=== PATIENT | male | born 1945 | race Hispanic/Latino ===

== ENCOUNTER 2017-01-01 07:26 | Day surgery (SDC) | payer BC ==
[2016-12-20 12:36] VITALS: BMI 38.5
[2017-01-01 08:02] LABS: ADD MANUAL DIFF? NO
[2017-01-01 08:10] LABS: BASO # 0.01 K/mm3 (0.0-2.0); BASO % 0.1 % (0.0-3.0); EOS # 0.2 (0.0-0.7); GRAN # 6.96 (1.4-6.5); GRAN % 72.6 % (50.0-68.0); HEMATOCRIT 40.8 % (42.0-52.0); LYMPH # 1.7 (1.2-3.4); LYMPH % 17.9 % (22.0-35.0); MEAN CELL VOLUME 88.5 fL (80.0-105.0); MEAN CORPUSCULAR HEMOGLOBIN 28.2 pg (25.0-35.0); MEAN CORPUSCULAR HGB CONC 31.9 g/dl (31.0-37.0); MEAN PLATELET VOLUME 11.3 fl (7.0-11.0); MONO # 0.7 (0.1-0.6); MONO % 7.4 % (1.0-6.0); PLATELET COUNT 215 10^3/uL (120.0-450.0); RED CELL DISTRIBUTION WIDTH 14.7 % (11.5-14.5); WHITE BLOOD COUNT 9.6 10^3/ul (4.5-11.0)
[2017-01-01 08:18] LABS: BLOOD UREA NITROGEN 36 mg/dL (7-21); CALCIUM 8.9 mg/dL (8.4-10.5); CARBON DIOXIDE 31 mmol/L (21-33); CHLORIDE 102 mmol/L (98-107); GFR AFRICAN-AMERICAN > 60; GLUCOSE,RANDOM 103 mg/dL (70-110); PARTIAL THROMBOPLASTIN TIME 27.3 Seconds (23.7-30.8); POTASSIUM 4.5 mmol/L (3.6-5.0); SODIUM 142 mmol/L (132-148)
[2017-01-01] MEDS ORDERED: Lidocaine 2% Inj (20ml) ONE (09:32)
[2017-01-01] MEDS ORDERED: Iodixanol 320 MG/ML 200 ML BOTTLE IV ONE (09:33)
[2017-01-01] MEDS ORDERED: Iodixanol 320 MG/ML 100 ML BOTTLE IV ONE (09:33)
[2017-01-01] MEDS ORDERED: Midazolam 2 MG/2 ML VIAL ONE ×2 (09:33→10:08)
--- NOTE | 2017-01-01 09:44 | CARD ---
APPROVED REPORT EKG Measurement Heart [id number] [place] [id number] <Conclusion> Sinus rhythm with 1st degree AV block with one premature ventricular complexes Left anterior fascicular block PRWP NSSTW changes
[2017-01-01] MEDS ORDERED: Sodium Chloride 0.9% 1,000 ML IV SCH (11:15)
--- NOTE | 2017-01-01 11:33 | CARDCATH ---
PROCEDURE DATE: 01/01/2017 HISTORY: The patient is a 71-year-old male who presents with angina and dyspnea. A stress test was abnormal. Because of this, cardiac catheterization was recommended. The patient suffers from COPD, peripheral vascular disease, a long history of smoking, hypertension, hypercholesterolemia and morbid obesity. PROCEDURES: Left heart catheterization with coronary angiography and left ventriculogram, followed b y percutaneous transluminal coronary angioplasty and stent of a proximal/mid left anterior descending . The right femoral artery was cannulated with a 6-[place] sheath. There were no complications. Findings on catheterization revealed a left ventricle that was preserved. Estimated ejection fractio n is between 50% and 55%. His coronary anatomy revealed a right dominant circulation. The RCA revealed diffuse intimal irregularities without critical lesions. 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 His left main artery was unremarkable. 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 Diagonal vessels revealed intimal irregularities. The circumflex artery and obtuse marginal branches were free of significant disease. The patient was started on intravenous Angiomax. Under fluoroscopic guide, a 3.5 XB guiding catheter was placed in the ostium of the left main artery. A 0.014 ATW wire was used to cross the lesion. Next, 200 mcg of IC nitroglycerin was given. A 3.0 x 12 mm drug-eluting stent was placed and deployed in the critical lesion in the proximal/mid L AD. Postdilatation was performed with a 3.5 noncompliant balloon. Repeat coronary angiography revealed an excellent result with no residual stenosis and JAKE 3 flow. Angio-Seal was used to close the femoral artery site. The patient tolerated the procedure well. IN SUMMARY: 1. The procedure was successful percutaneous transluminal coronary angioplasty and stent of a proxim al/mid left anterior descending stenosis with a drug-eluting stent. 2. Cardiac catheterization reveals single vessel coronary artery disease with a 70-80% stenosis in t he proximal/mid left anterior descending. 3. Left ventricular function is preserved. Given these findings, the patient will need to remain on aspirin indefinitely and Plavix for at least 1 year, and undergo a strict cardiac risk reduction program. Allen Montgomery MD cc: [phone] TT: 01/01/2017 11:32:36 mn
--- NOTE | 2017-01-01 12:32 | CP.PCM.HP ---
<Evens Fowler - Last Filed: 01/01/17 12:52> History of Present Illness - History of Present Illness History of Present Illness: Patient is a 71yo male with past medical history of CAD, COPD, hypertension, hyperlipidemia that presented to [facility] for an elective outpatient cardiac catherization with 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 He is currently s/p cardiac cath with 1 drug-eluting stent placed in the LAD. He had underwent a lexiscan on 12/20/16 which showed a fixed, apical and inferior defects that may have been from diaphragmatic attenuation however prior IA could not be ruled out (see report). He also had an echocardiogram done on 12/20/16 which revealed normal LVEF (~55%) with dilated RV, LA and RA (see full report). Today, he denied chest pain, palpitations, SOB, abdominal pain, nausea, vomiting, focal weakness , numbness, tingling, fevers, chills. 12point ROS as per HPI above otherwise negative PMHx: CAD, HTN, HLD, COPD PSHx: right eye cataract (~12yrs ago) Allergies: NKDA Meds: Reviewed and as per chart Family Hx: Mother: COPD, HTN; Father: COPD Social Hx: Former tobacco use (1 1/2 - 2 ppd for over 30 yrs, quit 7 yrs ago); Social alcohol use on the weekends; Denies illicit drugs Present on Admission - Present on Admission Any Indicators Present on Admission: No Past Patient History - CARDIAC Hx Pacemaker: No - PULMONARY Hx Chronic Obstructive Pulmonary Disease (COPD): Yes - NEUROLOGICAL Hx Paralysis: No - HEMATOLOGICAL/ONCOLOGICAL Hx Blood Transfusions: No - MUSCULOSKELETAL/RHEUMATOLOGICAL Hx Musculoskeletal Disorders: No - PSYCHIATRIC Hx Emotional Abuse: No Hx Physical Abuse: No Hx Substance Use: No - SURGICAL HISTORY Hx Surgeries: Yes - ANESTHESIA Hx Anesthesia Reactions: No Hx Malignant Hyperthermia: No Meds Allergies/Adverse Reactions: Allergies Allergy/AdvReac Type Severity Reaction Status Date / Time No Known Allergies Allergy Verified 12/20/16 12:34 Physical Exam - Constitutional Appears: Non-toxic, No Acute Distress - Head Exam Head Exam: ATRAUMATIC, NORMAL INSPECTION, NORMOCEPHALIC - Eye Exam Eye Exam: EOMI, PERRL - ENT Exam ENT Exam: Mucous Membranes Moist - Neck Exam Neck exam: Positive for: Normal Inspection. Negative for: Lymphadenopathy, Tenderness, Thyromegaly - Respiratory Exam Respiratory Exam: Clear to Auscultation Bilateral. absent: Rales, Rhonchi, Wheezes - Cardiovascular Exam Cardiovascular Exam: REGULAR RHYTHM, RRR, +S1, +S2. absent: Bradycardia, Tachycardia, Diastolic murmur, Gallop, JVD, Rubs, Systolic Murmur - GI/Abdominal Exam GI & Abdominal Exam: Normal Bowel Sounds, Soft. absent: Distended, Firm, Guarding, Rebound, Rigid, Tenderness - Extremities Exam Extremities exam: Positive for: normal inspection. Negative for: calf tenderness, pedal edema, tenderness - Back Exam Back exam: NORMAL INSPECTION - Neurological Exam Neurological exam: Alert, CN II-XII Intact, Oriented x3 - Psychiatric Exam Psychiatric exam: Normal Affect, Normal Mood - Skin Skin Exam: Dry, Intact, Normal Color, Warm Results - Vital Signs Recent Vital Signs: Last Vital Signs Temp 98.3 F 01/01/17 08:04 Pulse 87 01/01/17 08:04 Resp 20 01/01/17 08:04 BP 150/81 01/01/17 08:04 Pulse Ox 94 L 01/01/17 08:04 - Labs Result Diagrams: 01/01/17 08:00 01/01/17 08:00 Labs: Laboratory Results - last 24 hr 01/01/17 01/01/17 08:00 08:40 WBC 9.6 RBC 4.61 Hgb 13.0 L Hct 40.8 L MCV 88.5 MCH 28.2 MCHC 31.9 RDW 14.7 H Plt Count 215 MPV 11.3 H Gran % 72.6 H Lymph % (Auto) 17.9 L Harrison % (Auto) 7.4 H Eos % (Auto) 2.0 Baso % (Auto) 0.1 Gran # 6.96 H Lymph # 1.7 Harrison # 0.7 H Eos # 0.2 Baso # 0.01 PT 10.8 INR 1.00 APTT 27.3 Sodium 142 Potassium 4.5 Chloride 102 Carbon Dioxide 31 Anion Gap 14 BUN 36 H Creatinine 1.1 Est GFR ( Amer) > 60 Est GFR (Non-Af Amer) > 60 Random Glucose 103 Calcium 8.9 Blood Type A POSITIVE Blood Type Confirm A POSITIVE Antibody Screen Negative BBK History Checked No verified bt Assessment & Plan - Assessment and Plan (Free Text) Assessment: 71yo male with history of CAD, COPD, HTN, HLD admitted s/p elective outpatient cardiac catherization with 1 drug eluting stent placed in the LAD Plan: 1. CAD -Patient is s/p cardiac cath with 1 GERALDINE placed in the LAD -Echocardiogram from 12/20/16 reviewed; normal LVEF (~55%) with RA, LA and RV dilation; see full report -Lexiscan from 12/20/16 reviewed -EKG reviewed; normal sinus rhythm at 80bpm with 1st degree AV block, left anterior fascicular block, PRWP; NSSTW changes -Continue ASA and plavix -Continue lipitor -Cardiology following - Dr. Montgomery 2. Hypertension -Continue norvasc 3. Hyperlipidemia -Continue lipitor 4. COPD -currently stable, will continue to monitor -O2sat > 92% on room air 5. GI/DVT prophylaxis -Protonix/Lovenox Case reviewed with attending, Dr. Garvin - Date & Time Date: 01/01/17 Time: 12:41 <Timothy Garvin - Last Filed: 01/25/17 09:33> Results - Vital Signs Recent Vital Signs: Last Vital Signs Temp 98.6 F 01/02/17 06:00 Pulse 67 01/02/17 06:00 Resp 22 01/02/17 06:00 BP 119/64 01/02/17 06:00 Pulse Ox 99 01/02/17 06:00 - Labs Result Diagrams: 01/02/17 06:30 01/02/17 06:30 Attending/Attestation - Attestation I have personally seen and examined this patient.: Yes I have fully participated in the care of the patient.: Yes I have reviewed all pertinent clinical information: Yes Notes (Text): 01/25/17 09:33 Medical record note made by the resident after discussion with my direction and input after the patient was personally seen and examined by me. I have reviewed the chart and agree that the record accurately reflects by personal performance of the history, physical exam, data review, and medical decision-making, in the course for the patient. I have also personally directed the plan of care.
--- NOTE | 2017-01-01 13:01 | CARD ---
APPROVED REPORT EKG Measurement Heart [id number] <Conclusion> Sinus rhythm with 1st degree AV block Left anterior fascicular block Abnormal ECG
[2017-01-02 00:58] VITALS: RESP 22
[2017-01-02 06:02] VITALS: BP 119/64; PULSE 67; TEMP 98.6; O2SAT 99
[2017-01-02 07:47] LABS: ADD MANUAL DIFF? NO
[2017-01-02 07:57] LABS: BASO # 0.01 K/mm3 (0.0-2.0); BASO % 0.1 % (0.0-3.0); EOS # 0.2 (0.0-0.7); EOS % 3.1 % (1.5-5.0); GRAN # 4.44 (1.4-6.5); GRAN % 63.4 % (50.0-68.0); HEMATOCRIT 38.9 % (42.0-52.0); LYMPH # 1.9 (1.2-3.4); LYMPH % 26.6 % (22.0-35.0); MEAN CELL VOLUME 88.6 fL (80.0-105.0); MEAN CORPUSCULAR HEMOGLOBIN 28.2 pg (25.0-35.0); MEAN CORPUSCULAR HGB CONC 31.9 g/dl (31.0-37.0); MEAN PLATELET VOLUME 11.6 fl (7.0-11.0); MONO # 0.5 (0.1-0.6); MONO % 6.8 % (1.0-6.0); PLATELET COUNT 201 10^3/uL (120.0-450.0); RED CELL DISTRIBUTION WIDTH 14.6 % (11.5-14.5)
[2017-01-02 08:15] LABS: BLOOD UREA NITROGEN 22 mg/dL (7-21); CALCIUM 8.5 mg/dL (8.4-10.5); CARBON DIOXIDE 31 mmol/L (21-33); CHLORIDE 102 mmol/L (95-110); GFR AFRICAN-AMERICAN > 60; GLUCOSE,RANDOM 96 mg/dL (70-110); POTASSIUM 4.3 mmol/L (3.6-5.0); SODIUM 139 mmol/L (132-148)
--- NOTE | 2017-01-02 08:39 | PN ---
DATE: 01/02/2017 The patient is without chest pain, no shortness of breath. PHYSICAL EXAMINATION: VITAL SIGNS: Stable. NECK: Negative JVD. LUNGS: Without rales. HEART: Reveals S1, S2. EXTREMITIES: Without edema. The right groin site is stable. EKG is unremarkable. LABORATORIES: Pending. IMPRESSION: 1. Stable post percutaneous transluminal coronary angioplasty and stent. 2. Coronary artery disease. 3. History of hypercholesterolemia. 4. Abnormal stress test. 5. Hypertension. Given these findings, the patient is stable post PTCA and stent. He can be discharged today. He shayy l need to remain on Plavix for at least 1 year and undergo a strict cardiac risk reduction program. Allen Montgomery MD cc: [phone] TT: 01/02/2017 08:38:44 Confirmation # [id number] Dictation # [id number]
[2017-01-02] MEDS ORDERED: Enoxaparin 40 mg Syringe SC SCH (10:00)
--- NOTE | 2017-01-02 10:10 | CP.PCM.DIS ---
<Evens Fowler - Last Filed: 01/03/17 10:30> Provider - Provider Attending physician: Heber Romo MD Primary care physician: Heber Romo MD Consults: Cardiology - Dr. Montgomery Time Spent in preparation of Discharge (in minutes): 30 Hospital Course - Lab Results Lab Results: Most Recent Lab Values WBC 7.0 10^3/ul (4.5-11.0) D 01/02/17 06:30 RBC 4.39 10^6/uL (3.5-6.1) 01/02/17 06:30 Hgb 12.4 gm/dL (14.0-18.0) L 01/02/17 06:30 Hct 38.9 % (42.0-52.0) L 01/02/17 06:30 MCV 88.6 fL (80.0-105.0) 01/02/17 06:30 MCH 28.2 pg (25.0-35.0) 01/02/17 06:30 MCHC 31.9 g/dl (31.0-37.0) 01/02/17 06:30 RDW 14.6 % (11.5-14.5) H 01/02/17 06:30 Plt Count 201 10^3/uL (120.0-450.0) 01/02/17 06:30 MPV 11.6 fl (7.0-11.0) H 01/02/17 06:30 Gran % 63.4 % (50.0-68.0) 01/02/17 06:30 Lymph % (Auto) 26.6 % (22.0-35.0) 01/02/17 06:30 [place] % (Auto) 6.8 % (1.0-6.0) H 01/02/17 06:30 Eos % (Auto) 3.1 % (1.5-5.0) 01/02/17 06:30 Baso % (Auto) 0.1 % (0.0-3.0) 01/02/17 06:30 Gran # 4.44 (1.4-6.5) 01/02/17 06:30 Lymph # 1.9 (1.2-3.4) 01/02/17 06:30 [place] # 0.5 (0.1-0.6) 01/02/17 06:30 Eos # 0.2 (0.0-0.7) 01/02/17 06:30 Baso # 0.01 K/mm3 (0.0-2.0) 01/02/17 06:30 PT 10.8 Seconds (9.9-11.8) 01/01/17 08:00 INR 1.00 (0.93-1.08) 01/01/17 08:00 APTT 27.3 Seconds (23.7-30.8) 01/01/17 08:00 Sodium 139 mmol/L (132-148) 01/02/17 06:30 Potassium 4.3 mmol/L (3.6-5.0) 01/02/17 06:30 Chloride 102 mmol/L (95-110) 01/02/17 06:30 Carbon Dioxide 31 mmol/L (21-33) 01/02/17 06:30 Anion Gap 10 (10-20) 01/02/17 06:30 BUN 22 mg/dL (7-21) H 01/02/17 06:30 Creatinine 0.9 mg/dL (0.5-1.4) 01/02/17 06:30 Est GFR ( Amer) > 60 01/02/17 06:30 Est GFR (Non-Af Amer) > 60 01/02/17 06:30 Random Glucose 96 mg/dL (70-110) 01/02/17 06:30 Calcium 8.5 mg/dL (8.4-10.5) 01/02/17 06:30 Blood Type A POSITIVE 01/01/17 08:00 Blood Type Confirm A POSITIVE 01/01/17 08:40 Antibody Screen Negative 01/01/17 08:00 BBK History Checked No verified bt 01/01/17 08:00 - Hospital Course Hospital Course: Patient is a 71yo male with past medical history of CAD, COPD, hypertension, hyperlipidemia that presented to [facility] for an elective outpatient cardiac catherization with 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 He underwent a cardiac cath with 1 drug-eluting stent placed in the LAD. He had underwent a lexiscan on 12/20/16 which showed a fixed, apical and inferior defects that may have been from diaphragmatic attenuation however prior RI could not be ruled out. He also had an echocardiogram done on 12/20/16 which revealed normal LVEF (~ 55%) with dilated RV, LA and RA. The patient was kept overnight post cardiac catherization for observation and did not have any complaints of chest pain, palpitations, SOB, abdominal pain, nausea, vomiting, fever, chills, cough, focal weakness, numbness or tingling post procedure. He was advised to follow up with 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 Montgomery within 2 weeks post discharge as well as his primary care doctor. He was also instructed to fill the new medication prescribed to him: Plavix 75mg PO qD and take as directed. The patient had all questions answered and was agreeable to discharge. - Date & Time of H&P Date of H&P: 01/01/17 Discharge Exam - Head Exam Head Exam: ATRAUMATIC, NORMAL INSPECTION, NORMOCEPHALIC - Eye Exam Eye Exam: EOMI, PERRL. absent: Conjunctival injection, Scleral icterus - Respiratory Exam Respiratory Exam: Clear to PA & Lateral. absent: Rales, Rhonchi, Wheezes - Cardiovascular Exam Cardiovascular Exam: RRR, +S1, +S2. absent: Tachycardia, Clicks, Diastolic murmur, Gallop, JVD, Rubs, Systolic Murmur - GI/Abdominal Exam GI & Abdominal Exam: Soft. absent: Distended, Firm, Guarding, Tenderness - Neurological Exam Neurological exam: Alert, CN II-XII Intact, Oriented x3 - Psychiatric Exam Psychiatric exam: Normal Affect, Normal Mood - Skin Skin Exam: Dry, Intact, Normal Color, Warm Discharge Plan - Discharge Medications Prescriptions: Clopidogrel [Plavix] 75 mg PO DAILY #30 tab - Follow Up Plan Condition: GOOD Disposition: HOME/ ROUTINE Instructions: Coronary Artery Disease (DC), Coronary Intravascular Stent Placement (DC) Additional Instructions: 1. Follow up with your primary care doctor, Dr. Romo within 2 weeks. 2. Follow up with your chrome tanning drum operator, Dr. Montgomery in 2 weeks. 3. Fill the medication prescribed to you: Plavix 75mg and take it as directed Referrals: Heber Romo MD [Primary Care Provider] - <Heber Romo - Last Filed: 01/30/17 10:42> Provider - Provider Attending physician: Heber Romo MD Primary care physician: Heber Romo MD Hospital Course - Lab Results Lab Results: Most Recent Lab Values WBC 7.0 10^3/ul (4.5-11.0) D 01/02/17 06:30 RBC 4.39 10^6/uL (3.5-6.1) 01/02/17 06:30 Hgb 12.4 gm/dL (14.0-18.0) L 01/02/17 06:30 Hct 38.9 % (42.0-52.0) L 01/02/17 06:30 MCV 88.6 fL (80.0-105.0) 01/02/17 06:30 MCH 28.2 pg (25.0-35.0) 01/02/17 06:30 MCHC 31.9 g/dl (31.0-37.0) 01/02/17 06:30 RDW 14.6 % (11.5-14.5) H 01/02/17 06:30 Plt Count 201 10^3/uL (120.0-450.0) 01/02/17 06:30 MPV 11.6 fl (7.0-11.0) H 01/02/17 06:30 Gran % 63.4 % (50.0-68.0) 01/02/17 06:30 Lymph % (Auto) 26.6 % (22.0-35.0) 01/02/17 06:30 V[place] % (Auto) 6.8 % (1.0-6.0) H 01/02/17 06:30 Eos % (Auto) 3.1 % (1.5-5.0) 01/02/17 06:30 Baso % (Auto) 0.1 % (0.0-3.0) 01/02/17 06:30 Gran # 4.44 (1.4-6.5) 01/02/17 06:30 Lymph # 1.9 (1.2-3.4) 01/02/17 06:30 [place] # 0.5 (0.1-0.6) 01/02/17 06:30 Eos # 0.2 (0.0-0.7) 01/02/17 06:30 Baso # 0.01 K/mm3 (0.0-2.0) 01/02/17 06:30 PT 10.8 Seconds (9.9-11.8) 01/01/17 08:00 INR 1.00 (0.93-1.08) 01/01/17 08:00 APTT 27.3 Seconds (23.7-30.8) 01/01/17 08:00 Sodium 139 mmol/L (132-148) 01/02/17 06:30 Potassium 4.3 mmol/L (3.6-5.0) 01/02/17 06:30 Chloride 102 mmol/L (95-110) 01/02/17 06:30 Carbon Dioxide 31 mmol/L (21-33) 01/02/17 06:30 Anion Gap 10 (10-20) 01/02/17 06:30 BUN 22 mg/dL (7-21) H 01/02/17 06:30 Creatinine 0.9 mg/dL (0.5-1.4) 01/02/17 06:30 Est GFR ( Amer) > 60 01/02/17 06:30 Est GFR (Non-Af Amer) > 60 01/02/17 06:30 Random Glucose 96 mg/dL (70-110) 01/02/17 06:30 Calcium 8.5 mg/dL (8.4-10.5) 01/02/17 06:30 Blood Type A POSITIVE 01/01/17 08:00 Blood Type Confirm A POSITIVE 01/01/17 08:40 Antibody Screen Negative 01/01/17 08:00 BBK History Checked No verified bt 01/01/17 08:00 Attending/Attestation - Attestation I have personally seen and examined this patient.: Yes I have fully participated in the care of the patient.: Yes I have reviewed all pertinent clinical information, including history, physical exam and plan: Yes Notes (Text): 01/30/17 10:42 Medial record note done by resident after patient personally seen and examined by me. I have reviewed the chart and agree that the record accurately reflects my personal evaluation, data review, and course for the patient.
== END 2017-01-02 10:02 | disposition home or self-care (01) ==
LOC: CATH 07:26 → 2RSO 11:11 → CATH 01-02 10:02
PROVIDERS: ATTEND Internal Medicine
DX: I25.10 Atherosclerotic heart disease of native coronary artery without angina pectoris (principal); I10 Essential (primary) hypertension; J44.9 Chronic obstructive pulmonary disease, unspecified; I73.9 Peripheral vascular disease, unspecified; E78.00 Pure hypercholesterolemia, unspecified; E78.5 Hyperlipidemia, unspecified; I44.4 Left anterior fascicular block; I44.0 Atrioventricular block, first degree; E66.01 Morbid (severe) obesity due to excess calories; Z87.891 Personal history of nicotine dependence; Z68.38 Body mass index [BMI] 38.0-38.9, adult
CPT/HCPCS: 36415 ×2; 80048 ×2; 85025 ×2; 85610; 85730; 86850; 86900; 93005; 93458; 99152; 99153; C1725; C1760; C1769 ×2; C1874; C1887; C2629; C9600; J0583; J1644; J2250; J3010; J7030; J7040; Q9967